=== PATIENT | male | born 1950 | race Caucasian/White ===

== ENCOUNTER → 2023-02-22 | Outpatient (CLI) | payer MEDICARE, SELFPAY ==
--- NOTE | 2023-02-22 08:30 | MRI_ITS ---
STUDY: MRI CERVICAL SPINE WITHOUT CONTRAST REASON FOR EXAM: Male, 72 years old. PAIN IN BILATERAL ARMS RADIATING INTO HANDS TECHNIQUE: Standardized fat and water weighted pulse sequences were obtained in the sagittal and axial planes. COMPARISON: Cervical spine radiographs 02/01/2023. FINDINGS: Normal foramen magnum and brainstem-cervical cord junction. Normal craniovertebral junction. Normal anterior atlantoaxial articulation. Normal odontoid process. Mild cervical kyphosis. Normal vertebral bodies and posterior osseous elements. C2-3: Normal endplates. Normal disc height, signal and morphology. Normal central canal and intervertebral neural foramina. C3-4: Normal endplates. Normal disc height and morphology. Capacious central canal. Postsurgical absence of the posterior spinous processes and lamina. Articular pillar screws and rods causing some signal distortion artifacts. Normal intervertebral neural foramina. C4-5: Normal endplates. Normal disc height and morphology. Capacious central canal. Normal intervertebral neural foramina. Articular pillar screws and rods causing signal distortion artifacts. Postsurgical absence of the spinous processes and lamina. C5-6: Normal endplates. Moderate disc space height narrowing. Mild ventral axial defect due to minimal degenerative retrolisthesis of C5 on C6. Postsurgical absence of the spinous processes and lamina. Capacious central canal. Normal intervertebral neural foramina. Articular pillar screws and rods causing some signal distortion artifacts. C6-7: Minimal Modic type II degenerative vertebral marrow fat infiltration underneath the vertebral endplates. Moderate disc space height narrowing. Mild ventral extradural defect due to minimal degenerative retrolisthesis of C6 on C7. Postsurgical absence of the spinous processes and lamina. Articular pillar screws and rods causing signal distortion artifacts. Capacious central canal. Normal intervertebral neural foramina. C7-T1: Normal endplates. Normal disc height, signal and morphology. Normal central canal and intervertebral neural foramina. T1-T2 and T2-T3: (Sagittal only). Normal endplates. Normal disc height, signal and morphology. Normal central canal and intervertebral neural foramina. Normal cervical cord. Normal upper thoracic spinal cord. Normal included portions of the brainstem and cerebellum. Normal midline pituitary gland and suprasellar cistern. Normal visualized soft tissue structures. MRI/Spine Cervical (Routine) IMPRESSION: 1. Capacious central canal throughout the cervical spine and normal intervertebral neural foramina throughout the cervical spine. 2. Postsurgical absence of the spinous processes and lamina at C3-C4 down to C6-C7 disc space levels with articular pillar screws and rods causing signal distortion artifacts. 3. No MRI evidence of cervical extruded disc fragment above and below the fusion sites. 4. Normal cervical spinal cord. 5. Minimal degenerative retrolisthesis of C5 on C6 and C6-C7. Electronically Signed: Beto Cruz MD at 15:12 EDT ,
== END | disposition home or self-care (01) ==
LOC: MRI 07:37
PROVIDERS: PCP Family Medicine; Referring Provider Orthopaedic Surgery; Visit Provider Orthopaedic Surgery
DX: M54.2 Cervicalgia (principal)
CPT/HCPCS: 72141

== ENCOUNTER 2023-03-15 06:22 | Day surgery (SDC) | payer MEDICARE, SELFPAY ==
--- NOTE | 2023-03-14 08:00 | COLBX_PTH ---
PATIENT: GERONIMO VALENTINE Jr. LOC: EN U#:[id number] AGE/SX: 72/M ROOM: RE03/15/[address]: Dr. Erin Wilson MD : 1950 BED: DIS: 03/15/2023 SPEC #: [id number] RECD: 03/15/23 12:13 STATUS: RAUL KATTY #: [id number] KATIA: 03/14/23 08:[address]: Erin Wilson DEPT: SURGICAL PATHOLOGY RECD BY: Chelsea Rosales ENTERED: 03/15/23 12:52 SP TYPE: COLON BX OTHR DR: Dr. Kevin Martin MD Tissues: A - COLON BIOPSY B - Rectum, NOS C - Rectum, NOS Procedures: Surgery Specimen Level IV HEADER OPERATION: Colonoscopy with biopsies PRE-OP DIAGNOSIS: Positive colorectal cancer screening, A-fib TISSUE SUBMITTED: A. Transverse colon polyp, B. Rectum polyp, C. rectum polyp MICROSCOPIC DIAGNOSIS A. Transverse colon polyp, biopsy: Fragments of tubular adenoma. B. Rectum polyp, biopsy: Hyperplastic polyp. C. rectum polyp, biopsy: Fragments of hyperplastic polyp. SJ: 03/16/2023 MICROSCOPIC DESCRIPTION Slides are reviewed. GROSS DESCRIPTION A. Received is one container labeled with the patient name and designated transverse colon polyps. The specimen consists of multiple irregular fragments of light quintero soft tissue that in aggregate measure 2 x 0.8 x 0.1 cm. The specimen is totally submitted in one cassette. B. Received is one container labeled with the patient name and designated rectum polyp. The specimen consists of two irregular fragment of light quintero soft tissue that in aggrgate measure 0.3 x 0.3 x 0.1 cm. The specimen is totally submitted in one cassette. C. Received is one container labeled with the patient name and designated rectum polyp. The specimen consists of multiple irregular fragments of light quintero soft tissue that in aggregate measure 1.5 x 0.3 x 0.1 cm. The specimen is totally submitted in one cassette. / CONSTANTINO:rufus 03/15/23 TC: 1 CPT: 25249 x3
--- NOTE | 2023-03-15 06:44 | HP.PCM_ITS ---
History and Physical Date of Admission: 03/15/23 Date of Service: 02/17/23 MR#: [id number] Acct: [id number] Name: GERONIMO VALENTINE Rep #: [id number] : 1950 Provider: Dr. Erin Wilson MD Age/Sex: 72/M Location: [facility] Status: Signed Intake Vital Signs 02/01/2309:54 02/17/2309:59 Height 6 ft 1 in Weight: 269 lb BMI 35.4 BP 160/80 H Blood Pressure Location Lt brachial Position Sitting Respiration 17 Pulse 75 Pulse Source Monitor Temp 968 F H Temp Source Temporal Pulse Oximetry (%) 98 Oxygen Delivery Method room air Intake Visit Reasons: POSITIVE COLOGUARD Chief Complaint: positive cologuard Is patient in pain?: No Allergies No Known Allergies Allergy (Unverified 02/17/23 10:00) Medications atorvastatin 20 mg tablet 20 mg PO DAILY 02/01/23 [History Confirmed 02/01/23] dapagliflozin propanediol 10 mg tablet (Farxiga) 10 mg PO DAILY 02/01/23 [History Confirmed 02/01/23] diltiazem HCl 240 mg capsule,extended release 24 hr 240 mg PO DAILY 02/01/23 [History Confirmed 02/01/23] insulin glargine 100 unit/mL (3 mL) subcutaneous pen (Basaglar KwikPen U-100 Insulin) 15 unit subcut QAM 02/01/23 [History Confirmed 02/01/23] metformin 1,000 mg tablet 1,000 mg PO BID 02/01/23 [History Confirmed 02/01/23] ramipril 5 mg capsule 10 mg PO DAILY 02/01/23 [History Confirmed 02/01/23] rivaroxaban 20 mg tablet (Xarelto) 20 mg PO DAILY 02/01/23 [History Confirmed 02/01/23] semaglutide 1 mg/dose (2 mg/1.5 mL) subcutaneous pen injector (Ozempic) 1 mg subcut QWEEK 02/01/23 [History Confirmed 02/01/23] glucosamine-chondroitin 250 mg-200 mg tablet 2 tab PO DAILY 02/17/23 [History] omega 3-ahn-mgf-fish oil 1,200 mg (144 mg-216 mg) capsule (Fish Oil) cap PO DAILY 02/17/23 [History] PFSH Medical History (Updated 02/17/23 @ 10:[address] Erin Wilson MD) Myocardial infarct Surgical History (Updated 02/01/23 @ 10:26 by Colby Casanova RN) Hx of cervical spine surgery Hx of shoulder surgery Stented coronary artery Family History (Updated 02/17/23 @ 09:59 by Naomy Krishnamurthy) Father Heart disease HypertensionMother Cancer Social History (Updated 02/17/23 @ 09:59 by Naomy Krishnamurthy) Smoking Status: Former smoker substance use type: does not use HPI HPI HPI: 72-year-old male presents due to positive Cologuard. Patient had a colonoscopy about 10 years ago per patient which was negative. Patient denies any family history of colon cancer. Patient denies any chronic abdominal pain/nausea/vomiting. Patient states he does get reflux may be 2-3 times a week but it is brief and patient may occasionally take a Tums but is on no other medication for this. Patient has bowel movements daily denies any blood. Patient is currently on Xarelto for A-fib and also had heart stents 2 and 2000, 1 in 2008 and 1 in August 2022. ROS General General: Yes fatigue; No weight change, appetite, colon cancer, breast cancer or weakness HEENT HEENT: No difficulty swallowing, eye injury, eye surgery, swollen glands or hoarseness Endo Endocrine: Yes diabetes mellitus; No thyroid disease, thyroid cancer, Hair loss, heat intolerance or cold intolerance Skin Skin: No rash or changing moles Musc Musculoskeletal: Yes back problems, arthritis and rheumatoid arthritis; No gout or joint pain Cardio Cardiovascular: Yes heart disease, atrial fibrillation, high blood pressure, heart attack and heart stent; No murmur, pacemaker, palpitations, shortness of breath with exertion or chest pain Psych Psychiatric: No depression, anxiety or hearing voices Resp Respiratory: Yes shortness of breath, No sleep apnea, No cough, No COPD, No asthma, No emphysema and No wheezing Gastro Gastrointestinal: No abdominal pain, No nausea or vomiting, No diarrhea, No constipation, No blood in stool, No acid reflux, No hemorrhoids, No ulcers, No gallbladder problem and No black,tarry stools Spencer Hematologic: Yes blood thinners, No blood disorders, No bleeding, No anemia and No blood clots Neuro Neurologic: No system reviewed and no additional complaints, except as documented, No as per HPI, No abnormal gait, No abnormal hearing, No abnormal movements, No abnormal speech, No behavioral changes, No burning sensations, No confusion, No convulsions, No disequilibrium, No dizziness, No localized weakness, No frequent falls, No headache(s), No lack of coordination, No loss of vision, No memory loss, Yes numbness, No other visual disturbances, No radicular pain, No restless legs, No sensory deficit, No syncope, Yes tingling, No tremor(s), No weakness and No other Exam Const General: cooperative, healthy appearing, comfortable and no acute distress [facility] Head: normocephalic and atraumatic Neck Neck: supple Resp Effort & Inspection: normal respiratory effort Cardio Rate: regular rate GI Inspection: non-distended Palpation: soft and nontender Skin General: no rashes or lesions noted Neuro General: CN's II-XI intact bilaterally Extrem General: normal to inspection Psych Mental Status: mental status grossly normal Attitude: cooperative Assessment and Plan Assessment and Plan (1) Positive colorectal cancer screening using Cologuard test: Status: Acute (2) A-fib: Status: Acute (3) Anticoagulant long-term use: Status: Acute Plan Let patient hold his Xarelto x3 days and fish oil x5 days. I have discussed the above with the patient. I have offered the patient colonoscopy for evaluation. I have explained the risks/benefits of the procedure and described the procedure. I have discussed the risks with the patient, including but not limited to: infection, bleeding, perforation of the GI tract requiring emergency surgery, inability to complete the procedure, injury to any internal organs, complications of anesthesia, etc. - the patient understands and agrees to proceed. I have answered all the patient's questions to the patient's satisfaction and the patient has no further questions. The patient has been given instructions for the colon cleansing preparation. 1 day of clears, MiraLAX Dulcolax split prep. Erin Wilson M.D. Pager: [phone] [facility] [address] [place] [address], [facility], [address] [place] [address] Office: [phone] Coding Level of Care Code Off vis,new,level 3 Diagnoses Positive colorectal cancer screening using Cologuard test R19.5 A-fib I48.91 Anticoagulant long-term use Z79.01 02/17/23 1043 <Electronically signed by Erin Wilson MD> Date Erin Wilson MD
[2023-03-15 07:07] VITALS: BP 162/97; PULSE 68; RESP 17; TEMP 36.6; O2SAT 97; BMI 35.4
[2023-03-15 07:08] LABS: Bedside Glucose 187 mg/dL (74-106)
--- NOTE | 2023-03-15 07:10 | NURSING ---
DR. HERRERA MADE AWARE PT STOOL IS NOT CLEAR, PER MD TAP WATER ENEMAS TO BE GIVEN UNTIL CLEAR.
[2023-03-15] MEDS: Lactated Ringers 1,000 ML 15 ML IV (07:11)
[2023-03-15 09:05] VITALS: BP 162/97; BP 178/97; PULSE 65; RESP 16; TEMP 36.3; O2SAT 95
--- NOTE | 2023-03-15 09:05 | OP.CCLET_ITS ---
03/15/2023 Kevin Martin Re : Colonoscopy procedure for Luis Alberto Martin This procedure was performed on Wednesday, March 15, 2023. My impressions and recommendations are as follows: Impressions : - Ten less than 5 mm polyps in the rectum and in the transverse colon, removed with a cold biopsy forceps. Resected and retrieved. - The examination was otherwise normal. Recommendations : - Discharge patient to home. - Resume previous diet. - Continue present medications. - Await pathology results. - Repeat colonoscopy in 2 years for surveillance of multiple polyps. My findings are described in the full procedure note, which is enclosed. If I can be of further assistance, please feel free to contact me at Doctor phone number(s): , Work: . Sincerely, MD Erin Gallego MD 03/15/2023 9:04:21 AM This report has been signed electronically.
--- NOTE | 2023-03-15 09:05 | OP.COLON_ITS ---
Patient Name: Luis Alberto Sharp Procedure Date: 03/15/2023 7:44 AM Date of : 1950 Age: 72 Procedure: Colonoscopy Indications: Positive Cologuard test Providers: Erin Wilson MD Referring MD: Kevin Martin Medicines: Monitored Anesthesia Care Patient Profile: Last Colonoscopy: none. The patient's first colonoscopy is today. Complications: No immediate complications. Procedure: Pre-Anesthesia Assessment: - Prior to the procedure, a History and Physical was performed, and patient medications and allergies were reviewed. The patient's tolerance of previous anesthesia was also reviewed. The risks and benefits of the procedure and the sedation options and risks were discussed with the patient. All questions were answered, and informed consent was obtained. Prior Anticoagulants: The patient has taken no anticoagulant or antiplatelet agents. ASA Grade Assessment: Per anesthesia. After reviewing the risks and benefits, the patient was deemed in satisfactory condition to undergo the procedure. After I obtained informed consent, the scope was passed under direct vision. Throughout the procedure, the patient's blood pressure, pulse, and oxygen saturations were monitored continuously. The Colonoscope was introduced through the anus and advanced to the cecum, identified by the appendiceal orifice, ileocecal valve and palpation. The colonoscopy was somewhat difficult. The quality of the bowel preparation was adequate to identify polyps. Scope In: 8:07:12 AM Scope Withdrawal Time 0 hours 33 minutes 37 seconds Scope Out: 8:56:02 AM Total Procedure Duration Time 0 hours 48 minutes 50 seconds Findings: The perianal and digital rectal examinations were normal. Ten sessile polyps were found in the rectum and transverse colon. The polyps were less than 5 mm in size. These polyps were removed with a cold biopsy forceps. Resection and retrieval were complete. The exam was otherwise without abnormality. Impression: - Ten less than 5 mm polyps in the rectum and in the transverse colon, removed with a cold biopsy forceps. Resected and retrieved. - The examination was otherwise normal. Recommendation: - Discharge patient to home. - Resume previous diet. - Continue present medications. - Await pathology results. - Repeat colonoscopy in 2 years for surveillance of multiple polyps. Procedure Code(s): --- Professional --- 09917, PT, Colonoscopy, flexible; with biopsy, single or multiple Diagnosis Code(s): --- Professional --- D12.8, Benign neoplasm of rectum D12.3, Benign neoplasm of transverse colon (hepatic flexure or splenic flexure) R19.5, Other fecal abnormalities CPT copyright 2021 [employer]. All rights reserved. The codes documented in this report are preliminary and upon pediatric hospitalist review may be revised to meet current compliance requirements. MD Erin Gallego MD 03/15/2023 9:04:21 AM This report has been signed electronically. Number of Addenda: 0 Note Initiated On: 03/15/2023 7:44 AM
[2023-03-15 09:10] VITALS: BP 162/97; BP 169/95; PULSE 64; RESP 16; O2SAT 96
[2023-03-15 09:15] VITALS: BP 162/97; BP 177/93; PULSE 66; RESP 16; O2SAT 98
[2023-03-15 09:20] VITALS: BP 162/97; BP 173/93; PULSE 63; RESP 16; TEMP 36.4; O2SAT 98
[2023-03-15 09:32] VITALS: BP 162/97
== END 2023-03-15 09:48 | disposition home or self-care (01) ==
LOC: EN 06:22 → AC 06:23
PROVIDERS: PCP Family Medicine; Referring Provider Family Medicine; Visit Provider Surgery
PROC: 0DJD8ZZ Inspection of Lower Intestinal Tract, Via Natural or Artificial Opening Endoscopic (ICD-10-PCS; CPT 45378; principal; 2023-03-15 07:55)
DX: D12.3 Benign neoplasm of transverse colon (principal); I48.0 Paroxysmal atrial fibrillation; E11.9 Type 2 diabetes mellitus without complications; Z79.4 Long term (current) use of insulin; I10 Essential (primary) hypertension; I25.10 Atherosclerotic heart disease of native coronary artery without angina pectoris; I25.2 Old myocardial infarction; D12.8 Benign neoplasm of rectum; R19.5 Other fecal abnormalities; Z95.5 Presence of coronary angioplasty implant and graft; Z79.01 Long term (current) use of anticoagulants; Z79.84 Long term (current) use of oral hypoglycemic drugs; Z79.85 Long-term (current) use of injectable non-insulin antidiabetic drugs; Z79.899 Other long term (current) drug therapy; Z87.891 Personal history of nicotine dependence
CPT/HCPCS: 45380; 82962; 88305; J7120